=== PATIENT | female | born 1945 | race Caucasian/White ===

== ENCOUNTER → 2019-02-10 09:36 | Outpatient (CLI) | payer MEDICARE, BC, SELFPAY ==
--- NOTE | 2019-02-10 09:45 | CT_ITS ---
STUDY: CT ABDOMEN AND PELVIS WITHOUT CONTRAST REASON FOR EXAM: Female, 73 years old. Right flank pain. History of kidney stones. RADIATION DOSAGE (If Supplied By Facility): CTDIvol = ( 13.91 ) mGy, DLP = ( 675.53 ) mGycm TECHNIQUE: Transaxial images were obtained from the dome of the diaphragm to the symphysis pubis without oral contrast, and without intravenous contrast. Sagittal and coronal images were reconstructed. Individualized dose optimization techniques were used for this CT. COMPARISON: Comparison is made with prior study dated February 12, 2017. FINDINGS: The visualized lung bases are unremarkable. The visualized portions of the heart are within normal limits. There is decreased attenuation of the liver consistent with steatosis. Normal gallbladder and extrahepatic biliary system. There is a benign calcified granuloma of the spleen. Normal pancreas. Normal bilateral adrenal glands. Normal right kidney. Mild to moderate degree of left hydronephrosis and left hydroureter due to a 2 mm calculus at the left ureterovesical junction. Stable left parapelvic renal cysts. There is a small hiatal hernia. Normal small intestine. There are multiple colonic diverticula consistent with diverticulosis. The appendix is visualized and appears normal. There is diffuse atherosclerotic calcification of the abdominal aorta and its major visceral branches including the splenic artery., without a demonstrated aneurysm. Normal inferior vena cava. There is borderline retroperitoneal lymphadenopathy with enlarged nodes no greater than 10mm in the short axis diameter. Normal urinary bladder. There is absence of the uterus consistent with a prior hysterectomy. Normal abdominal wall. There are mild degenerative changes of the visualized lumbar spine. CT/Abdomen/Pelvis without Cont IMPRESSION: 2 mm calculus at left ureterovesical junction with mild left hydronephrosis and hydroureter. The remainder of examination is unchanged. Electronically Signed: Jude Ocampo, at 10:41 EDT , Service support ,
== END ==
PROVIDERS: Family Provider Internal Medicine; PCP Internal Medicine; Referring Provider Nurse Practitioner Adult Health; Visit Provider Nurse Practitioner Adult Health
DX: N20.0 Calculus of kidney (principal); R10.9 Unspecified abdominal pain
CPT/HCPCS: 74176

== ENCOUNTER → 2020-05-07 09:43 | Outpatient (CLI) | payer MEDICARE, BC, SELFPAY ==
--- NOTE | 2020-05-07 09:56 | RAD_ITS ---
STUDY: X-RAY - ABDOMEN/PELVIS REASON FOR EXAM: Female, 75 years old. RIGHT SIDED ABDOMINAL PAIN, HX KIDNEY STONES TECHNIQUE: Single AP view of the abdomen / pelvis. COMPARISON: Comparison is made with prior study dated March 16, 2017. FINDINGS: Normal visualized lung bases. There is a moderate amount of colonic fecal material. The visualized liver, spleen and kidneys are grossly normal in size and morphology. Normal soft tissue structures. There are diffuse degenerative changes of the visualized lumbar spine. RAD/Abdomen Single View IMPRESSION: Normal x-ray examination of the abdomen and pelvis. Electronically Signed: Jude Ocampo, at 10:10 EDT , Service support ,
== END ==
PROVIDERS: PCP Internal Medicine; Referring Provider Urology; Visit Provider Urology
DX: R10.9 Unspecified abdominal pain (principal)
CPT/HCPCS: 74018

== ENCOUNTER → 2022-05-29 | Outpatient (CLI) | payer MEDICARE, BC, SELFPAY ==
--- NOTE | 2022-05-29 11:19 | RAD_ITS ---
STUDY: X-RAY - ABDOMEN/PELVIS REASON FOR EXAM: Female, 77 years old. GENERALIZED ABDOMINAL PAIN/PERSONAL HX OF URINARY CALCULI TECHNIQUE: AP supine and upright views of the abdomen and pelvis. COMPARISON: 05/07/2020 FINDINGS: Normal visualized lung bases. There is an unremarkable bowel gas pattern. There is no demonstrated free abdominal air. The visualized liver, spleen and kidneys are grossly normal in size and morphology. Normal soft tissue structures. Age-appropriate osseous structures. RAD/Abdomen Single View IMPRESSION: There is no acute abdomen and pelvic pathology. No nephrolithiasis is detected on plain film. Electronically Signed: Hali Wick MD at 5:04 EDT Reading Location ID and State: , Service support ,
== END | disposition home or self-care (01) ==
LOC: RAD 11:14
PROVIDERS: PCP Internal Medicine; Visit Provider Urology
DX: R10.84 Generalized abdominal pain (principal); Z87.442 Personal history of urinary calculi
CPT/HCPCS: 74018

== ENCOUNTER 2023-10-09 11:39 | Emergency (ER) | payer MEDICARE, BC, SELFPAY ==
[2023-10-09 11:39] VITALS: BP 146/114; PULSE 164; RESP 16; TEMP 36.4; O2SAT 100
--- NOTE | 2023-10-09 11:49 | EKG12_ITS ---
Test Reason : RHYTHM Blood Pressure : / mmHG Vent. Rate : 142 BPM Atrial Rate : 000 BPM P-R Int : 000 ms QRS Dur : 102 ms QT Int : 322 ms P-R-T Axes : 000 000 040 degrees QTc Int : 495 ms Critical Test Result: High HR Atrial fibrillation with rapid ventricular response Incomplete right bundle branch block Abnormal ECG Confirmed by PENNY WANG, SHASHANK ([id number]), food expeditor EH SANTOS ([id number]) on 10/12/2023 8:26:46 AM Referred By: Confirmed By:JESSE FRANCIS MD
[2023-10-09 12:14] VITALS: BP 151/101; PULSE 138; RESP 15; BMI 32.7
[2023-10-09 12:24] LABS: Absolute Lymphocyte Count 1.56 X10^3/uL (0.83-4.51); Absolute Neutrophil Count 3.6 X10^3/uL (2.0-7.7); Basophil# 0.02 X10^3/uL; Basophil% 0.4 % (0-1); Eosinophil# 0.03 X10^3/uL; Eosinophils% 0.5 % (0-5); Hematocrit 43.1 % (37-47); Hemoglobin 14.2 g/dL (12.0-15.0); Lymphocyte # 1.56 X10^3/ul (0.83-4.51); Lymphocyte % 27.8 % (19-41); Mean Corp Hgb Conc 32.9 g/dL (32-36); Mean Corpuscular Hgb 31.7 pg (27.0-32.0); Mean Corpuscular Volume 96.2 fL (81-99); Mean Platelet Vol. 11.3 fl (6.2-12.0); Monocyte# 0.39 X10^3/uL; NRBC Flagged by Analyzer 0 % (0-5); Neutrophil % 64.1 % (47-70); Platelet Count 186 K/mm3 (150-450); RBC Distribution Width CV 13.2 % (11.6-14.6); Red Blood Count 4.48 M/mm3 (4.2-5.4); White Blood Count 5.6 K/mm3 (4.4-11.0)
[2023-10-09] MEDS: dilTIAZem 25 MG/5 ML Vial 20 MG IV BOLUS (12:37)
[2023-10-09 12:42] LABS: Anion Gap 2 (5-15); BUN 11 mg/dL (7-18); BUN/Creat Ratio 16.6 RATIO (10-20); Chloride 110 mmol/L (98-107); Creatinine, Serum 0.66 mg/dL (0.55-1.02); EST Glomerular Filtration Rate 92 mL/min (>60); Est Glom Filt Rate - Afr Amer 111 mL/min (>60); Glucose 104 mg/dL (74-106); Potassium 3.4 mmol/L (3.5-5.1); Sodium Level 140 mmol/L (136-145); Troponin-I HS 10 pg/mL (3.0-54.0)
[2023-10-09] MEDS: dilTIAZem 30 MG Tablet PO (12:55)
[2023-10-09 13:00] VITALS: BP 123/82; PULSE 101; RESP 16
--- NOTE | 2023-10-09 13:58 | EDS_ITS ---
HPI History of Present Illness Chief Complaint: Palpitations Detail of Chief Complaint: Patient was sent in because of rapid heart beat. Informant: patient and spouse/S.O. Onset/Context/Timing Onset: - (Unknown) Context: - (Unknown) Timing: - (Unknown) Quality: Patient was unaware that her heart rate was going 1 70-1 80. Location: Cardiovascular Current Severity: Moderate Maximum Severity: Moderate Worsened by: Nothing to patient's knowledge Relieved by: Not applicable Associated Symptoms Associated Symptoms: No associated symptoms other than she was flushed this afternoon. Narrative Narrative: Patient has a history of hypertension and hypothyroidism. She is on levothyroxine. Her dose has not been changed sometimes and she had outpatient TSH which was normal. She denies headache, visual, ocular auditory symptoms. She denies chest pain, dyspnea, dyspnea exertion, orthopnea or PND. She denies GI symptoms. She denies urologic symptoms. She denies neurologic symptoms. She is presently taking losartan for her blood pressure. Prior similar symptoms: Yes Recent Illness/Hospitalization: No PFSH PFSH Medical History HTN (hypertension) Prediabetes Home Medications alendronate 35 mg tablet 35 mg PO Q7D 10/09/23 [History Last Taken Unknown] apixaban 5 mg tablet (Eliquis) 5 mg PO BID #60 tabs 10/09/23 [Rx Last Taken Unknown] diltiazem HCl 120 mg capsule,extended release 24 hr (Cardizem CD) 120 mg PO DAILY #30 caps 10/09/23 [Rx Last Taken Unknown] levothyroxine 50 mcg tablet 50 mcg PO DAILY 10/09/23 [History Last Taken Unknown] losartan 100 mg tablet 100 mg PO DAILY 10/09/23 [History Last Taken Unknown] Allergy/AdvReac Type Severity Reaction Status Date / Time No Known Allergies Allergy Verified 10/09/23 11:41 Family History Mother Thyroid disorder Surgical History H/O hysterectomy with oophorectomy H/O thyroidectomy Social History household members: spouse housing: house Smoking Status: Never smoker ROS ROS ED Constitutional Constitutional ED: Denies chills, fever(s), subjective, sweats or weight loss Eyes Eyes: Denies blurry vision, change in vision or diplopia ENT ENT ED: Denies ear pain, rhinorrhea or sore throat Cardiovascular Cardiovascular: Denies chest pain, orthopnea, palpitations, paroxysmal nocturnal dyspnea or racing heartbeat Respiratory/Chest Respiratory/Chest: Denies cough, dyspnea, dyspnea on exertion, orthopnea or paroxysmal nocturnal dyspnea Gastrointestinal Gastrointestinal: Denies abdominal pain, nausea or vomiting Musculoskeletal Musculoskeletal: Denies arthralgias, back pain or myalgias Integumentary Denies abscess, Abrasions or rash Neurologic Neurologic: Denies headache(s), paresthesias or weakness Endocrine Endocrinology: Denies cold intolerance or heat intolerance Hematologic/Lymphatic Hematologic/Lymphatic: Reports systems reviewed and no addt'l complaints, except as documented EXAM Physical Exam Const Vital Signs: 10/09/23 11:39 10/09/23 12:14 10/09/23 13:00 Temperature 97.5 F L Temperature Source Temporal Pulse Rate 164 H 138 H 101 H Respiratory Rate 16 15 16 Blood Pressure 146/114 H 151/101 H 123/82 H Blood Pressure Mean 124 117 95 Pulse Ox 100 Oxygen Delivery Method Room Air Positive well nourished and well developed General Appearance ED: well developed and NAD; Negative for cyanotic, diaphoretic or pallor HEENT Reports moist mucous membranes HEENT Narrative: Head is atraumatic and normocephalic. Ears normal. Nares patent. Posterior pharynx is normal. Eyes PERRL and EOMs intact bilaterally General Eye ED: Negative for pale conjunctiva or scleral icterus Neck no lymphadenopathy, supple and no JVD Chest Wall inspection of chest normal and palpation of chest normal Resp normal respiratory effort and clear to auscultation bilaterally Cardio no murmurs Rate: tachycardic Rhythm: abnormal rhythm irregularly irregular GI normal to inspection, nondistended, normoactive bowel sounds, non-tender, non- distended and no masses; Negative for hepatosplenomegaly Back/Spine no CVA tenderness Thoracic Spine / Upper Back: Negative for thoracic spinal tenderness Lumbar Spine / Lower Back: Negative for lumbar spinal tenderness Extremity normal to inspection Neuro oriented x3, CN's II-XII intact bilaterally and no sensory deficits noted Sensorium / Orientation: alert Motor Exam: strength 5/5 throughout Skin no rashes or lesions noted, no wounds and skin turgor normal General Skin Exam: Negative for jaundice or pallor MDM MDM MDM Narrative Medical decision making narrative: Patient with new onset atrial fib with unknown onset. CBC was obtained assess H&H. [place] was assessed renal function. Troponin to rule out cardiac ischemia. Patient does have long history standing history of hypertension and most likely the cause of her A-fib. Her sees Dr. Loomis and she would like to follow-up with Dr. Shrestha. Patient received 20 mg of Cardizem IV push and 30 mg of Cardizem p.o. Patient's heart rate is now 101. Will contact the cardiology office to assure prompt follow-up. Will discharge on Cardizem and Eliquis. Will start on Eliquis 5 mg twice daily. Patient's renal function is normal. Lab Data Attestation: I reviewed the patient's lab results. Lab results narrative: CBC will be pediatric on and are normal. Labs: Laboratory Results - last 24 hr 10/09/23 12:10 WBC 5.6 RBC 4.48 Hgb 14.2 Hct 43.1 MCV 96.2 MCH 31.7 MCHC 32.9 RDW Std Deviation 47.0 H RDW Coeff of [place] 13.2 Plt Count 186 MPV 11.3 Immature Gran % (Auto) 0.200 Neut % (Auto) 64.1 Lymph % (Auto) 27.8 [place] % (Auto) 7.0 Eos % (Auto) 0.5 Baso % (Auto) 0.4 Absolute Neuts (auto) 3.6 Absolute Lymphs (auto) 1.56 Nucleated RBC % 0 Sodium 140 Potassium 3.4 L Chloride 110 H Carbon Dioxide 28.0 Anion Gap 2 L BUN 11 Creatinine 0.66 Estim Creat Clear Calc 44.10 Est GFR (MDRD) Af Amer 111 Est GFR (MDRD) Non-Af 92 BUN/Creatinine Ratio 16.6 Glucose 104 Calcium 9.0 Troponin I High Sens 10 Management Discussion w/another healthcare provider: Other (Spoke with Dr. Scooter Shrestha is office staff. Patient is to call and arrange will be made for urgent follow-up. Patient will need outpatient work-up i.e. echo etc. She was started on Eliquis and Cardizem.) Discharge Plan Triage Chief Complaint: Palpitations ED Provider: Dylan Whitaker Dx/Rx/DC Orders Clinical Impression: New onset a-fib, History of hypothyroidism, Elevated blood pressure reading with diagnosis of hypertension Instructions: ED AFIB Prescriptions: New Eliquis 5 mg tablet 5 mg PO BID Qty: 60 0RF diltiazem HCl [Cardizem CD] 120 mg capsule,extended release 24hr 120 mg PO DAILY Qty: 30 0RF No Action alendronate 35 mg tablet 35 mg PO Q7D Patient Comments: TAKE 1 TABLET BY MOUTH ONE TIME A WEEK. levothyroxine 50 mcg tablet 50 mcg PO DAILY Patient Comments: TAKE 1 TABLET BY MOUTH DAILY BEFORE BREAKFAST. PLEASE GIVE GENERIC losartan 100 mg tablet 100 mg PO DAILY Patient Comments: TAKE 1 TABLET BY MOUTH EVERY DAY Primary Care Provider: Rosa Stratton Referrals: Rosa Stratton MD [Primary Care Provider] - Scooter Shrestha MD [Med Staff - Active Staff] - Activity Restrictions/Additional Instructions: 1. Take medication as prescribed 2. Call Dr. Loomis's office. Office staff is expecting your call and they will arrange for prompt follow-up. Disposition Disposition: Home, Self Care
[2023-10-09 14:35] VITALS: PULSE 100; RESP 16
== END 2023-10-09 14:44 | disposition home or self-care (01) ==
PROVIDERS: Emergency Provider Emergency Medicine; PCP Internal Medicine; Visit Provider Emergency Medicine
DX: I48.91 Unspecified atrial fibrillation (principal); I10 Essential (primary) hypertension; E03.9 Hypothyroidism, unspecified; Z79.890 Hormone replacement therapy; Z79.899 Other long term (current) drug therapy; Z79.01 Long term (current) use of anticoagulants
CPT/HCPCS: 80048; 84484; 85025; 93005; 96374; 99284; A4216

== ENCOUNTER → 2023-12-08 | Outpatient (CLI) | payer MEDICARE, BC, SELFPAY ==
--- NOTE | 2023-12-08 12:44 | ECHOD_ITS ---
Reason For Study: Afib Procedure This was a 2D Doppler, Color Flow transthoracic echocardiogram. Exam performed in department. Left Ventricle Normal LV size. Left ventricular systolic function is normal. The estimated ejection fraction is 60 %. Stage 2 diastolic dysfunction. No regional wall motion abnormalities noted. Right Ventricle Normal RV size. Normal systolic function. Atria The left atrium is mildly enlarged. Normal right atrium. Mitral Valve Mild focal mitral valve thickening. Mild (1+) eccentric mitral valve insufficiency. Tricuspid Valve Normal tricuspid valve. Mild to moderate (1-2+) tricuspid valve insufficiency. Pulmonary artery systolic pressure is 42 mmHg. Aortic Valve Trisinus/trileaflet aortic valve. Pulmonic Valve Normal pulmonic valve. Great Vessels Normal aortic root. The pulmonary artery is normal size. Normal inferior vena cava. Pericardium/Pleural No pericardial effusion. MMode/2D Measurements & Calculations LVIDd: 4.8 cm IVSd: 0.95 cm Ao root diam: 3.2 cm LVIDs: 3.5 cm LVPWd: 0.85 cm LA dimension: 4.3 cm RVDd: 3.7 cm FS: 27.9 % LAV(MOD-bp): 76.8 ml LVAd ap4: 23.1 cm2 SV(MOD-sp4): 29.4 ml LAV(MOD-bp) Indexed: 38.8 ml/m2 LVLd ap4: 7.9 cm LAV(MOD-sp2): 67.8 ml EDV(MOD-sp4): 55.3 ml LAV(MOD-sp4): 76.2 ml EDV(sp4-el): 57.8 ml LVAs ap4: 13.6 cm2 LVLs ap4: 6.3 cm ESV(MOD-sp4): 25.9 ml ESV(sp4-el): 25.1 ml EF(MOD-sp4): 53.1 % EF(sp4-el): 56.5 % SV(sp4-el): 32.7 ml LA A4 area: 25.0 cm2 RA A4 area: 20.1 cm2 TAPSE: 2.0 cm Time Measurements MV dec time: 0.15 sec Doppler Measurements & Calculations MV E max anthony: 98.4 cm/sec Lat Peak E' Anthony: 11.8 cm/sec Med Peak E' Anthony: 8.6 cm/sec MV A max anthony: 62.3 cm/sec E/E' lat: 8.3 E/E' med: 11.4 MV E/A: 1.6 MV V2 max: 129.4 cm/sec MV P1/2t max anthony: 131.2 cm/sec Ao V2 max: 119.0 cm/sec MV max P.7 mmHg MV P1/2t: 57.0 msec Ao max P.7 mmHg MV V2 mean: 56.9 cm/sec MV dec slope: 674.1 cm/sec2 Ao V2 mean: 77.9 cm/sec MV mean P.6 mmHg Ao mean P.9 mmHg MV V2 VTI: 31.1 cm MVA(P1/2t): 3.9 cm2 Ao V2 VTI: 28.1 cm AV (velocity ratio): 0.91 LV V1 max: 99.7 cm/sec MR max anthony: 614.4 cm/sec PA V2 max: 86.9 cm/sec LV V1 max P.0 mmHg MR max P.0 mmHg PA V2 mean: 62.0 cm/sec LV V1 mean P.0 mmHg LV V1 mean: 64.9 cm/sec LV V1 VTI: 25.4 cm TR max anthony: 309.5 cm/sec TR max P.3 mmHg ECHO/Echo Complete Interpretation Summary Normal LV size. Left ventricular systolic function is normal. The estimated ejection fraction is 60 %. The left atrium is mildly enlarged. Stage 2 diastolic dysfunction. Mild (1+) eccentric mitral valve insufficiency. Ordering Physician: Scooter Shrestha Referring Physician: Scooter Shrestha Performed By: Pool Mckeon RCS
== END | disposition home or self-care (01) ==
LOC: CVS 12:37
PROVIDERS: PCP Internal Medicine; Referring Provider Internal Medicine Cardiovascular Disease; Visit Provider Internal Medicine Cardiovascular Disease
DX: I48.91 Unspecified atrial fibrillation (principal); I48.4 Atypical atrial flutter
CPT/HCPCS: 93306